=== PATIENT | male | born 1990 | race Caucasian/White ===

== ENCOUNTER 2017-04-24 22:22 | Inpatient (IN) | payer OTHER ==
[~2017-04-24] VITALS: Ht 190.5 cm; Wt 92.5 kg
--- NOTE | 2017-04-24 22:22 | NUR ---
CALLED RT FOR INTUBATION
--- NOTE | 2017-04-24 22:24 | NUR ---
PT'S FRIEND TA (PN# [phone]) HAS PT'S BELONGINGS.
[2017-04-24] MEDS ORDERED: NALOXONE HCL 0.4 MG/ML AMPUL ONE ×2 (22:37)
[2017-04-24 22:51] LABS: EOSINOPHILS # (AUTO) 0.1 /CMM (0.0-0.7); EOSINOPHILS % (AUTO) 1.5 % (0.0-6.0); HEMATOCRIT 40 % (39-51); LYMPHOCYTES # (AUTO) 4.1 /CMM (0.8-4.8); LYMPHOCYTES % (AUTO) 41.2 % (20.0-44.0); MEAN CORPUSCULAR HEMOGLOBIN 28 PG (26.0-33.0); MEAN CORPUSCULAR HGB CONC 32 g/dl (31.0-36.0); MEAN CORPUSCULAR VOLUME 86 fL (80-96); MONOCYTES # (AUTO) 0.7 /CMM (0.1-1.30); MONOCYTES % (AUTO) 7.5 % (2.0-12.0); NEUTROPHILS % (AUTO) 49.8 % (43.0-81.0); PLATELET COUNT (AUTO) 313 /CMM (150-450); RDW COEFFICIENT OF VARIATION 15.2 (11.5-15.0); RED BLOOD CELL COUNT(AUTO) 4.69 MIL/uL (4.5-6.0)
[2017-04-24] MEDS ORDERED: ONDANSETRON HCL/PF 4 MG/2 ML VIAL IVP ONE (23:00)
[2017-04-24] MEDS ORDERED: NALOXONE PREFILLED SYRINGE 2 MG/2 ML SYRINGE IV ONE (23:00)
[2017-04-24 23:04] LABS: INR 1.07 (0.87-1.13); PROTHROMBIN TIME 11.1 SECS (9.5-12.7)
[2017-04-24 23:10] LABS: TROPONIN I < 0.017 ng/mL (0.00-0.056)
[2017-04-24 23:19] LABS: ACETAMINOPHEN 0 ug/ml (10-30); ALANINE AMINOTRANSFERASE 21 U/L (12-78); ALBUMIN 4.2 g/dL (3.4-5.0); ALCOHOL, BLOOD < 3 mg/dL (0-0); ALKALINE PHOSPHATASE 72 U/L (46-116); ASPARTATE AMINOTRANSFERASE 20 U/L (15-37); BILIRUBIN,TOTAL 0.2 mg/dL (0.2-1.0); CALCIUM, SERUM 8.6 mg/dL (8.5-10.1); CARBON DIOXIDE 27 mmol/L (21-32); CHLORIDE 102 mmol/L (98-107); CREATINE KINASE, TOTAL 104 U/L (39-308); CREATININE 1.5 mg/dL (0.6-1.3); GLUCOSE 227 mg/dL (74-106); POTASSIUM 3.7 mmol/L (3.5-5.1); SALICYLATE 1.5 mg/dL (2.8-20.0); SODIUM SERUM 140 mmol/L (136-145); UREA NITROGEN, BLOOD 15 mg/dL (7-18)
[2017-04-25] MEDS ORDERED: MAG HYDROX/AL HYDROX/SIMETH 30 ML UDC PO PRN (00:30)
[2017-04-25] MEDS ORDERED: Z GUARD REMEDY 2 OZ OINT TP PRN (00:30)
[2017-04-25] MEDS ORDERED: ACETAMINOPHEN 325 MG TABLET PO PRN (00:30)
[2017-04-25] MEDS ORDERED: ONDANSETRON HCL/PF 4 MG/2 ML VIAL IVP PRN (00:30)
--- NOTE | 2017-04-25 01:21 | NUR ---
REPORT GIVEN TO BECKY MUNOZ, CONTINUE PLAN OF CARE
--- NOTE | 2017-04-25 01:45 | NUR ---
RN NOTE RECEIVED PT IN NO ACUTE DISTRESS IN BED. PT IS A/O X 3 AND ABLE TO MAKE NEEDS KNOWN. PT WAS ABLE TO AMBULATE TO BED FROM [facility] WITH STEADY GAIT. PT IS ON O2 VIA NC @ 2 LPM AND TOLERATING WELL WITH O2 SAT @ 97%. PT NOT C/O ANY SOB, DIFFICULTY BREATHING OR PAIN AT THIS TIME. PT PLACED ON TELE MONITOR WITH NSR @ 88. BED IN LOW LOCK POSITION WITH RAILS UP X 2. CALL LIGHT WITHIN REACH AND ALL SAFETY MEASURES ENSURED AND CARRIED OUT. WILL CONTINUE TO MONITOR PT.
[2017-04-25] MEDS ORDERED: PIPERACILLIN /TAZOBACTAM 2.25 G VIAL IV ONE (02:25)
[2017-04-25] MEDS: PIPERACILLIN /TAZOBACTAM 4.5 G in IV D5W 50 ML IV SCH ×2 (02:51→05:00)
[2017-04-25] MEDS: IV NS 0.9% 1,000 ML IV PRN ×2 (02:52→23:17)
[2017-04-25 04:00] VITALS: BP 105/66
--- NOTE | 2017-04-25 06:38 | NUR ---
RN NOTE ZOSYN NOT GIVEN @ 0500 BECAUSE LAST DOSE WAS AT 0251 AND ZOSYN IS Q8H. WILL ENDORSE TO AM ALEXANDER.
--- NOTE | 2017-04-25 07:52 | NUR ---
RN NOTE PT REMAINS IN NO ACUTE DISTRESS IN BED. PT DID NOT HAVE ANY SIGNIFICANT CHANGE IN CONDITION DURING SHIFT. ALL NEEDS MET, ALL ORDERS CARRIED OUT. WILL ENDORSE CARE TO AM RN FOR CONTINUITY OF CARE.
[2017-04-25 08:00] VITALS: BP 122/79
[2017-04-25] MEDS: PIPERACILLIN /TAZOBACTAM 3.375 G in IV D5W 50 ML IV SCH ×3 (09:58→23:17)
[2017-04-25] MEDS: PANTOPRAZOLE 40 MG TABLET.DR PO SCH (10:00)
[2017-04-25 14:11] VITALS: BP 113/69
--- NOTE | 2017-04-25 15:58 | NUR ---
Nurses Notes: Patient was downgrade to Med-Surgical, Telemetry was discontinued earlier. IV is infusing, remains on IV zosyn. Report given to med-surg nurse Татьяна Pierce, patient was transfer to [facility], patient wants quiet room, other patient is loud. Remains on IV fluids.
[2017-04-25 16:00] VITALS: BP 113/69
--- NOTE | 2017-04-25 16:30 | NUR ---
MS RN RECEIVED REPORT, AWAKE,ALERT,ORIENTED X4,NOT IN ANY FORM OF DISTRESS, RESPIRATIONS EVEN AND UNLABORED,NO SOB NOTED. WILL MONITOR PATIENT.
--- NOTE | 2017-04-25 18:00 | NUR ---
MS RN DUE MEDS GIVEN,TOLERATED WELL.
--- NOTE | 2017-04-25 18:49 | NUR ---
MS RN ON BED, NO DISTRESS NOTED,ALL NEEDS ATTENDED,
--- NOTE | 2017-04-25 19:15 | NUR ---
RN OPEN NOTES RECEIVED PATIENT AWAKE IN BED WITH FAMILY AT BEDSIDE. A/O X3. NO SIGNS OF DISTRESS OR DISCOMFORT. BREATHING EVEN AND UNLABORED. ON 2LPM O2 VIA NC. IV ACCESS IN RAC WITH NS INFUSING, PATENT AND INTACT, NO SIGNS OF REDNESS OR INFILTRATION. BED IN LOW LOCKED POSITION WITH SIDE RAILS X2. CALL LIGHT WITHIN REACH. WILL CONTINUE TO MONITOR.
[2017-04-25 20:00] VITALS: BP 116/82
[2017-04-25] MEDS ORDERED: ESCI5TAB PO (20:01)
[2017-04-26] MEDS: PIPERACILLIN /TAZOBACTAM 3.375 G in IV D5W 50 ML IV SCH ×4 (05:57→23:24)
--- NOTE | 2017-04-26 06:56 | NUR ---
RN CLOSING NOTES PATIENT RESTING IN BED, EASILY AROUSABLE. A/O X3. NO SIGNS OF DISTRESS OR DISCOMFORT. BREATHING EVEN AND UNLABORED. ON 2LPM O2 VIA NC. IV ACCESS IN RAC WITH NS INFUSING, PATENT AND INTACT, NO SIGNS OF REDNESS OR INFILTRATION. ALL NEEDS MET. NO SIGNIFICANT CHANGES THROUGH THE NIGHT. BED IN LOW LOCKED POSITION WITH SIDE RAILS X2. CALL LIGHT WITHIN REACH. WILL ENDORSE TO AM SHIFT FOR MIRIAN.
[2017-04-26 07:27] LABS: BASOPHILS % (AUTO) 0.5 % (0.0-2.0); EOSINOPHILS # (AUTO) 0.7 /CMM (0.0-0.7); EOSINOPHILS % (AUTO) 8.5 % (0.0-6.0); HEMATOCRIT 35 % (39-51); HEMOGLOBIN 11.5 g/dL (13.5-17.5); LYMPHOCYTES # (AUTO) 1.7 /CMM (0.8-4.8); LYMPHOCYTES % (AUTO) 20.6 % (20.0-44.0); MAGNESIUM 1.7 mg/dL (1.8-2.4); MEAN CORPUSCULAR HEMOGLOBIN 28 PG (26.0-33.0); MEAN CORPUSCULAR HGB CONC 33 g/dl (31.0-36.0); MEAN CORPUSCULAR VOLUME 84 fL (80-96); MONOCYTES # (AUTO) 0.6 /CMM (0.1-1.30); MONOCYTES % (AUTO) 7.8 % (2.0-12.0); NEUTROPHILS # (AUTO) 5.2 /CMM (1.8-8.9); NEUTROPHILS % (AUTO) 62.6 % (43.0-81.0); PLATELET COUNT (AUTO) 226 /CMM (150-450); POTASSIUM 4.1 mmol/L (3.5-5.1); RED BLOOD CELL COUNT(AUTO) 4.13 MIL/uL (4.5-6.0); WHITE BLOOD COUNT (AUTO) 8.3 K/uL (4.3-11.0)
--- NOTE | 2017-04-26 07:40 | NUR ---
RN OPENING NOTES PATIENT RESTING IN BED, RESPONSIVE, A/O X3. NO SIGNS OF DISTRESS OR DISCOMFORT. BREATHING EVEN AND UNLABORED. ON 2LPM O2 VIA NC. IV ACCESS IN RAC WITH NS INFUSING, PATENT AND INTACT, NO SIGNS OF REDNESS OR INFILTRATION. KEPT PATIENT SAFE AND COMFORTABLE. BED IN LOW, LOCKED POSITION WITH SIDE RAILS X2. CALL LIGHT WITHIN REACH. WILL CONTINUE TO MONITOR ACCORDINGLY.
[2017-04-26 07:41] LABS: THYROID STIMULATING HORMONE 0.856 uIU/mL (0.358-3.74)
[2017-04-26 08:00] VITALS: BP 129/88
--- NOTE | 2017-04-26 10:04 | NUR ---
RN NOTES CALLED DR OKEEFE TO FOLLOW UP WITH PATIENT'S MEDICATION. PER DR OKEEFE, OK TO CONTINUE LEXAPRO 5 MG 1TAB PO DAILY.
[2017-04-26] MEDS: PANTOPRAZOLE 40 MG TABLET.DR PO SCH (10:11)
[2017-04-26] MEDS: ESCITALOPRAM OXALATE (10 MG) 10 MG TABLET PO SCH (10:12)
[2017-04-26] MEDS: Magnesium 1GM/D5W 100ML PREMIX 100 ML IV SCH ×2 (13:03→14:03)
[2017-04-26 16:00] VITALS: BP 121/83
[2017-04-26] MEDS: IV NS 0.9% 1,000 ML IV PRN (17:50)
--- NOTE | 2017-04-26 19:20 | NUR ---
RN CLOSING NOTES NO SIGNIFICANT CHANGE IN PATIENT'S CONDITION. NO ACUTE DISTRESS, NO SOB NOTED. NO S/S OF PAIN OR DISCOMFORT. ALL NEEDS ATTENDED AND PROVIDED. KEPT PATIENT SAFE AND COMFORTABLE. BED IN LOW, LOCKED POSITION, SEMI FOWLERS POSITION, SIDERAILS UPX2. CALL LIGHT IN REACH. ENDORSED TO NIGHT RN FOR MIRIAN.
--- NOTE | 2017-04-26 19:30 | NUR ---
RN INITIAL NOTES RECEIVED PATIENT AWAKE IN BED, A/O X3, ABLE TO VERBALIZE NEEDS. NO SIGNS OF ACUTE DISTRESS OR DISCOMFORT NOTED AT THIS TIME. BREATHING EVEN AND UNLABORED, FREE FROM ANY S/S OF RESPIRATORY DISTRESS. ON 02 VIA NC @ 2LPM, TOLERATING WELL. IV ACCESS IN RAC WITH NS INFUSING, PATENT AND INTACT, NO SIGNS OF REDNESS, INFILTRATION, OR PHLEBITIS. BED IN LOWEST AND LOCKED POSITION WITH SIDE RAILS X2. CALL LIGHT LEFT WITHIN EASY REACH. BED IN LOWEST AND LOCKED POSITION. WILL CONTINUE TO MONITOR.
[2017-04-26 20:00] VITALS: BP 127/80
--- NOTE | 2017-04-26 23:57 | NUR ---
RN NOTES PATIENT VERBALIZES WISH TO LEAVE AMA @ 0600 TO GO TO WORK. EXPLAINED RISKS AND CONSEQUENCES OF LEAVING AMA, ANSWERED ALL QUESTIONS AND CONCERNS, WITH VERBALIZATION OF UNDERSTANDING. DR TOLEDO MADE AWARE, WILL CONTINUE TO CLOSELY MONITOR.
[2017-04-27] MEDS: PIPERACILLIN /TAZOBACTAM 3.375 G in IV D5W 50 ML IV SCH (05:23)
[2017-04-27] MEDS: IV NS 0.9% 1,000 ML IV PRN (06:56)
--- NOTE | 2017-04-27 07:30 | NUR ---
MS MUNOZ AM NOTES RECEIVED PATIENT AWAKE IN BED, A/O X3, ABLE TO VERBALIZE NEEDS. NO SIGNS OF ACUTE DISTRESS OR DISCOMFORT NOTED AT THIS TIME. BREATHING EVEN AND UNLABORED, ON RA, IV ACCESS IN RAC WITH NS INFUSING AT 100 ML/HR, SITE CLEAR, BRP, BED IN LOWEST AND LOCKED POSITION WITH SIDE RAILS X2. CALL LIGHT LEFT WITHIN EASY REACH. BED IN LOWEST AND LOCKED POSITION. WILL CONTINUE TO MONITOR.
[2017-04-27 07:48] LABS: CALCIUM, SERUM 9.9 mg/dL (8.5-10.1); CREATININE 1.1 mg/dL (0.6-1.3); MAGNESIUM 1.9 mg/dL (1.8-2.4); POTASSIUM 3.9 mmol/L (3.5-5.1)
[2017-04-27 08:00] VITALS: BP 147/83
[2017-04-27] MEDS: ESCITALOPRAM OXALATE (10 MG) 10 MG TABLET PO SCH (08:18)
[2017-04-27] MEDS: PANTOPRAZOLE 40 MG TABLET.DR PO SCH (08:18)
[2017-04-27] MEDS ORDERED: NALOXONE HCL 0.4 MG/ML AMPUL IV ONE (08:45)
[2017-04-27] MEDS ORDERED: FEE PK DOSING 1 MIN EA MC ONE (08:45)
--- NOTE | 2017-04-27 09:30 | NUR ---
MS RN NOTES ADMINISTERED DUE MEDS.
[2017-04-27] MEDS ORDERED: AMOX-430 PO (10:51)
--- NOTE | 2017-04-27 11:24 | NUR ---
MS CATALYST RECOVERY OPERATOR NOTES PATIENT DISCHARGED TO HOME TODAY PER MD IN STABLE CONDITION. PROVIDED DC INSTRUCTIONS, MED RECON LIST/PRESCRIPTION AND HEALTH TEACHINGS. IV ACCESS REMOVED NO BLEEDING, DRESSING IN PLACE. PT TO FOLLOW UP WITH PCP IN 1 WEEKS AND WILL MAKE OWN SCHEDULE. ALL BELONGINGS CHECKED AND RETURNED. ALL PAPER WORKS SIGNED. PATIENT TO GO HOME VIA [facility]FT.
== END 2017-04-27 11:21 | disposition home or self-care (01) | DRG 917 ==
LOC: ER 22:24 → TELE1 04-25 01:17 → TELE-TD 04-25 01:30 → MEDSG1 04-25 11:18 → TELE1 04-25 11:23 → MEDSG1 04-25 11:41
PROVIDERS: ADMIT Internal Medicine; ATTEND Internal Medicine
DX: T42.4X1A Poisoning by benzodiazepines, accidental (unintentional), initial encounter (principal); G92 Toxic encephalopathy; J96.01 Acute respiratory failure with hypoxia; J69.0 Pneumonitis due to inhalation of food and vomit; N17.9 Acute kidney failure, unspecified; T43.591A Poisoning by other antipsychotics and neuroleptics, accidental (unintentional), initial encounter; Y92.89 Other specified places as the place of occurrence of the external cause; Y92.9 Unspecified place or not applicable; F41.9 Anxiety disorder, unspecified; F19.90 Other psychoactive substance use, unspecified, uncomplicated
CPT/HCPCS: 36415; 71010-TC; 80048-TC; 80061-TC; 80076-TC; 80305; 82550-TC; 82962-TC; 83735-TC; 84100-TC; 84443-TC; 84484-TC; 85025-TC; 85730-TC; 87081-TC; A4606; G0480; J2310; J2543; J3475; J7030; J7060; Z7610